=== PATIENT | female | born 1945 ===

== ENCOUNTER 2019-08-18 10:39 | Outpatient (CLI) | payer MEDICARE, OTHER, SELFPAY ==
--- NOTE | ~2019-08-18 | XR_ITS ---
XR hand RT min 3V DATE: 08/18/2019 11:11 INDICATION: Right hand pain TECHNIQUE: 3 views COMPARISON: None FINDINGS: Mild osteoarthritis at the first carpometacarpal joint. There is osteoarthritic change at m ultiple interphalangeal joints. No fracture, dislocation, periosteal reaction or bone destruction. No erosive change or chondrocalcin osis. IMPRESSION: Polyarticular osteoarthritis Reviewed, dictated and finalized at location A.
--- NOTE | ~2019-08-18 | XR_ITS ---
XR finger 3rd RT min 2V DATE: 08/18/2019 11:11 INDICATION: Right hand and third digit pain TECHNIQUE: 3 views of third digit COMPARISON: None FINDINGS: Joint space narrowing and spurring and uncinate the proximal and particularly distal interp halangeal joints, as well as some likely degenerative ossicles, consistent with osteoarthritis. No fracture, dislocation, periosteal reaction or bone destruction. There is soft tissue swelling centered at the proximal interphalangeal joint. IMPRESSION: Soft tissue swelling centered approximately interphalangeal joint Osteoarthritic changes at the proximal and distal interphalangeal joints Reviewed, dictated and finalized at location A.
== END 2019-08-18 10:40 | disposition home or self-care (01) ==
PROVIDERS: PCP Family Medicine; Visit Provider Physician Assistant
DX: M25.449 Effusion, unspecified hand (principal); M79.641 Pain in right hand; M19.041 Primary osteoarthritis, right hand; M79.89 Other specified soft tissue disorders
CPT/HCPCS: 73130; 73140

== ENCOUNTER 2021-04-11 11:29 | Outpatient (CLI) | payer MEDICARE, OTHER, SELFPAY ==
--- NOTE | ~2021-04-11 | CT_ITS ---
EXAMINATION: CT brain wo con EXAM DATE: 04/11/2021 12:05 INDICATION: R55 - Syncope and collapse. Dizziness. TECHNIQUE: Spiral CT of the head was performed without contrast. Axial, coronal and sagittal images were reviewed. The dose-length product (DLP) for this examination was 681.00 mGy-cm. The exposure w as tailored according to patient size, and iterative reconstruction (ASIR) was used as additional dos e reduction technique. Comparison is made to prior examination from 03/17/2018. FINDINGS: There is no acute intraparenchymal hemorrhage. No evidence of intraparenchymal brain mass lesion. No evidence of acute infarction. Please note that initial head CT has limited sensitivity f or small or acute infarctions. There is mild to moderate periventricular and subcortical hypodensity, nonspecific but probably related to small vessel ischemic disease. There is mild prominence of the sulci and ventricles related to cerebral atrophy. There is intracranial carotid arteriosclerosis. There are no extra-axial collections. There is no mass effect or midline shift. Patient has had bi lateral ocular lens surgery. Mild right maxillary sinus mucoperiosteal thickening. IMPRESSION: 1. No acute intracranial findings. 2. Chronic age related findings. Reviewed, dictated and finalized at location A. [employer]
--- NOTE | ~2021-04-11 | US_ITS ---
EXAMINATION: US carotid duplex BI EXAM DATE: 04/11/2021 11:58 INDICATION: R55 - Syncope and collapse . TECHNIQUE: Grayscale, color and pulsed Doppler images of the cervical carotid arteries were obtained . The degree of vessel stenosis is placed in one of the following categories: normal, <50% stenosis, 50-69% stenosis, >=70% stenosis but less than near-occlusion, near-occlusion, or occlusion. Note that percent stenosis relative to normal distal artery lumen diameter is indirectly measured from velocit y measurements as described by Mark, et al. Radiology 2003; 229:340-346. Comparison is made to prior examination from 03/17/2018. FINDINGS: RIGHT SIDE: Right common carotid artery peak systolic velocity (PSV in cm/s): 79 Right bulb/internal carotid artery peak systolic velocity (PSV in cm/s): 45 Right internal carotid artery end diastolic velocity (EDV in cm/s): 15 Right ICA/CCA peak systolic ratio: 0.6 Right external carotid artery peak systolic velocity (PSV in cm/s): 53 Right vertebral artery antegrade flow: yes There is minimal carotid bulb plaque. Velocity and Doppler waveforms in the common and internal carotid arteries is normal. LEFT SIDE: Left common carotid artery peak systolic velocity (PSV in cm/s): 82 Left bulb/internal carotid artery peak systolic velocity (PSV in cm/s): 58 Left internal carotid artery end diastolic velocity (EDV in cm/s): 22 Left ICA/CCA peak systolic ratio: 0.7 Left external carotid artery peak systolic velocity (PSV in cm/s): 78 Left vertebral artery antegrade flow: yes There is no focal plaque identified. IMPRESSION: 1. Less than 50 percent stenosis in the right internal carotid artery. 2. Normal left internal carotid artery. Reviewed, dictated and finalized at location A. MOUNTER
--- NOTE | 2021-04-11 12:08 | ECHO_ITS ---
Patient Info Name: Cyndy Bernal Age: 75 years : 1945 Gender: Female Ht: 63 in Wt: 110 lbs BSA: 1.49 m2 HR: 61 bpm BP: 177 / 109 mmHg Technical Quality: Good Exam Date: 04/11/2021 12:38 PM Exam Location: [facility] Patient Status: Outpatient Admit Date: 04/11/2021 Staff Ordering Physician: Agnieszka Peterson Data Administrator: Jane Perez RDCS Attending Provider: Agnieszka Peterson Referring Physician: Nicholas BUCK; Exam Type: CA echo doppler color flow Study Info Indications R55 - Syncope and collapse Complete two-dimensional, color flow and Doppler transthoracic echocardiogram is performed. Summary 1. Complete two-dimensional, color flow and Doppler transthoracic echocardiogram is performed. 2. Left ventricular chamber dimension is normal. 3. Left ventricular systolic function is normal, estimated at 60-65%. 4. The left ventricular diastolic function is grade I diastolic dysfunction. 5. E/e' 11 is mildly elevated. 6. Global longitudinal strain is abnormal at -15.2%. 7. There is mild aortic valve sclerosis. 8. There is mild mitral valve regurgitation. 9. No pulmonary hypertension, estimated pulmonary arterial systolic pressure is 30 mmHg. Left Ventricle E/e' 11 is mildly elevated. Global longitudinal strain is abnormal at -15.2%. Left ventricular chamber dimension is normal. Left ventricular systolic function is normal, estimated at 60-65%. The left ventricular diastolic function is grade I diastolic dysfunction. Right Ventricle Right ventricular systolic function is normal and with normal TAPSE 1.9 cm. Right ventricular chamber dimension is normal. Left Atria Left atrial chamber dimension is normal. Right Atria Right atrial chamber dimension is normal. Aortic Valve The aortic valve is trileaflet. There is mild aortic valve sclerosis. There is no aortic valve stenosis. There is no aortic valve regurgitation. Pulmonic Valve There is no pulmonic regurgitation. Mitral Valve There is no mitral valve stenosis. There is mild mitral valve regurgitation. Tricuspid Valve There is no tricuspid valve regurgitation. No pulmonary hypertension, estimated pulmonary arterial systolic pressure is 30 mmHg. Pericardium/Pleural There is no pericardial effusion. Inferior Vena Cava Normal inferior vena cava with >50% collapse upon inspiration consistent with normal right atrial pressure, 5 mmHg. Aorta The aortic root size at the sinus of Valsalva is normal. Left Ventricular Outflow Tract Name Value Normal LVOT 2D LVOT Diameter 1.9 cm LVOT Doppler LVOT Peak Gradient 5 mmHg LVOT Mean Gradient 3 mmHg LVOT VTI 23 cm LVOT VTI/AV VTI Ratio 0.9 LVOT Stroke Volume 65 ml LVOT CO 3.9 l/min LVOT CI 2.6 l/min/m2 Pulmonic Valve Name Value
== END 2021-04-11 11:30 | disposition home or self-care (01) ==
LOC: ANHIMG 11:33
PROVIDERS: PCP Family Medicine; Visit Provider Nurse Practitioner Family
DX: R55 Syncope and collapse (principal); E78.00 Pure hypercholesterolemia, unspecified; I10 Essential (primary) hypertension; Z86.73 Personal history of transient ischemic attack (TIA), and cerebral infarction without residual deficits; I35.8 Other nonrheumatic aortic valve disorders; I34.0 Nonrheumatic mitral (valve) insufficiency; I65.21 Occlusion and stenosis of right carotid artery
CPT/HCPCS: 70450; 93306; 93880

== ENCOUNTER 2022-05-01 10:50 | Outpatient (CLI) | payer MEDICARE, OTHER, SELFPAY ==
[2022-05-01 12:35] LABS: Alanine Aminotransferase 27 U/L (6-35); Albumin Level 4.4 g/dL (3.5-5.1); Alkaline Phosphatase 66 U/L (38-126); Anion Gap 4 mmol/L (8-16); Aspartate Amino Transferase 31 U/L (14-36); Bilirubin,Total 0.7 mg/dL (0.2-1.3); Blood Urea Nitrogen 23 mg/dL (7-17); Calcium 8.5 mg/dL (8.4-10.2); Carbon Dioxide 31 mmol/L (22-30); Chloride 104 mmol/L (98-107); Estimated Glomerular Filt Rate > 60; Glucose 91 mg/dL (65-110); Potassium 4.2 mmol/L (3.4-5.0); Sodium 139 mmol/L (137-145)
== END 2022-05-01 10:51 | disposition home or self-care (01) ==
LOC: ANHLAB 10:50
PROVIDERS: PCP Family Medicine; Visit Provider Physician Assistant
DX: Z00.00 Encounter for general adult medical examination without abnormal findings (principal); E78.00 Pure hypercholesterolemia, unspecified; I10 Essential (primary) hypertension
CPT/HCPCS: 36415; 80053

== ENCOUNTER 2023-09-14 06:35 | Emergency (ER) | payer OTHER, SELFPAY ==
[2023-09-14] VITALS (9 sets, daily range): BP systolic 130–153; BP diastolic 84–99; PULSE 47–74; RESP 14–35; TEMP 36.4; O2SAT 95–100
--- NOTE | ~2023-09-14 | CT_ITS ---
Non-contrast CT scan of the Abdomen and Pelvis Clinical indication: Left flank pain Technique: 2.5 mm axial scans were obtained through the abdomen and pelvis without intravenous or or al contrast. Dose reduction technique was used on this scan by utilizing automated exposure control a nd iterative reconstruction technique. The dose-length product (DLP) was 188.51 mGy-cm. Findings: Images through the lung bases reveal no abnormalities. There is no evidence of renal or ureteral calculi. The kidneys and the ureters are nondilated. Left r enal cyst present. The liver, spleen, pancreas, gallbladder, and adrenals appear normal. There is no aortic aneurysm. There is no evidence of bowel obstruction. Normal appendix. Images through the pelvis were performed. There is no evidence of ascites or lymphadenopathy. Urinary bladder unremarkable. No adnexal mass seen. Impression: No significant abnormality seen. Reviewed, dictated and finalized at [facility]. Impression: No significant abnormality seen.
[2023-09-14] MEDS: MORPHINE SULFATE (*CRX) 4 MG/ML INJ IV PUSH (06:50)
[2023-09-14] MEDS: ONDANSETRON INJ 4 MG/2 ML VIAL IV PUSH (06:50)
[2023-09-14 06:54] LABS: Basophils Percent Auto 0.4 % (0.2-1.2); Eosinophils Absolute Auto 0.1 K/mm3 (0-0.3); Eosinophils Percent Auto 1.6 % (0-4.4); Hematocrit 40.8 % (37.0-47.0); Hemoglobin 13.7 g/dL (12.0-15.0); Immature Granulocyte Absolute 0.01 K/mm3 (0.00-0.031); Immature Granulocyte Percent A 0.2 % (0-0.5); Lymphocytes Absolute Auto 2.04 K/mm3 (0.9-3.2); Lymphocytes Percent Auto 36.2 % (18.3-44.2); Mean Corpuscular HGB Conc 33.6 g/dl (32-36); Mean Corpuscular Hemoglobin 30.3 pg (26-34); Mean Corpuscular Volume 90.3 fl (80-100); Mean Platelet Volume 10.9 fl (7.4-10.4); Monocytes Absolute Auto 0.5 K/mm3 (0.1-0.6); Monocytes Percent Auto 8.5 % (2.6-8.5); Neutrophils Percent Auto 53.1 % (45.5-73.1); Platelet Count Result 187 k/mm3 (150-375); Red Blood Count 4.52 M/mm3 (4.2-5.4); Red Cell Distribution Width 13.2 % (11.5-14.5); White Blood Count 5.6 K/mm3 (4.5-10.0)
[2023-09-14 07:00] LABS: Alanine Aminotransferase 15 U/L (6-35); Albumin Level 4.1 g/dL (3.5-5.1); Alkaline Phosphatase 64 U/L (38-126); Anion Gap 8 mmol/L (4-12); Aspartate Amino Transferase 24 U/L (14-36); Bilirubin,Total 0.5 mg/dL (0.2-1.3); Blood Urea Nitrogen 25 mg/dL (7-17); Calcium 8.9 mg/dL (8.4-10.2); Carbon Dioxide 25 mmol/L (22-30); Chloride 105 mmol/L (98-107); Estimated CRCL calculation 42 ml/min; Estimated Glomerular Filt Rate > 60; Glucose 139 mg/dL (65-110); Potassium 3.9 mmol/L (3.4-5.0); Sodium 138 mmol/L (137-145)
[2023-09-14] MEDS: SODIUM CHLORIDE 0.9% IV 2,000 ML 999 ML IV CONT (07:36)
[2023-09-14] MEDS: HYDROmorphone HCL INJ (*CRX) 1 MG/ML SYR 0.5 MG IV PUSH (07:36)
--- NOTE | 2023-09-14 07:43 | ED.GENADULT ---
HPI - General Adult General Chief complaint: Abdominal Pain Stated complaint: flank pain Time Seen by Provider: 09/14/23 06:58 History of Present Illness HPI narrative: this is a 78-year-old female presenting with left-sided flank and abdominal pain. Patient said her symptoms started at 6:00 a.m.. They woke her from sleep. Is an achy pain in the left flank and left lower quadrant. It is severe in intensity and constant. She immediately called her daughter and was brought to the hospital for the EMS. Patient has had nausea and vomiting. Denies fevers or urinary symptoms. Last bowel movement was yesterday. No history of kidney stones. Related Data Allergies Allergy/AdvReac Type Severity Reaction Status Date / Time hydrocortisone Allergy Intermediate itching Verified 09/14/23 06:41 and redness formaldehyde Allergy Unknown itching Verified 09/14/23 06:41 bacitracin Allergy Other Verified 09/14/23 06:41 [From Triple Antibiotic] neomycin Allergy Other Verified 09/14/23 06:41 [From Triple Antibiotic] polymyxin B Allergy Other Verified 09/14/23 06:41 [From Triple Antibiotic] lisinopril AdvReac Unknown not Verified 09/14/23 06:41 effective gludoradorhyde Allergy Intermediate redness Uncoded 09/14/23 06:41 and itching MARIAH Allergy Itching Uncoded 09/14/23 06:41 PMFSH Past Medical History Medical History Cyst Positive colorectal cancer screening using Cologuard test Social History Social History Smoking status: Never smoker Second hand tobacco smoke exposure: No Alcohol intake: current Drinks per week: 3 Substance use: never Substance use type: does not use Living arrangements: alone Occupation/Education: occupation Gender identity (if verbalized by the patient): Female Exam Narrative: APPEARANCE: Patient is rolling back and forth in the bed in pain Head: atraumatic. EYES: EOMI, NOSE: Atraumatic NECK: Trachea midline RESPIRATORY: No increased rate of breathing CARDIOVASCULAR: RRR, ABDOMINAL: tenderness to palpation in the left lower quadrant with voluntary guarding. Left CVA tenderness. MUSCULOSKELETAl: No obvious deformities NEURO: Alert. Moving 4/4 extremities SKIN:: Warm, dry. Normal color PSYCHIATRIC: Normal affect Course Vital Signs Vital signs: Vital Signs Temperature 97.6 F 09/14/23 06:34 Pulse Rate 53 L 09/14/23 06:34 Respiratory Rate 21 H 09/14/23 06:34 Blood Pressure 153/99 H 09/14/23 06:34 Pulse Oximetry 100 09/14/23 06:34 Oxygen Delivery Room Air 09/14/23 06:34 Temperature 97.6 F 09/14/23 06:34 Pulse Rate 53 L 09/14/23 06:34 Respiratory Rate 21 H 09/14/23 06:34 Blood Pressure 153/99 H 09/14/23 06:34 Pulse Oximetry 100 09/14/23 06:34 Oxygen Delivery Room Air 09/14/23 06:34 Medical Decision Making MDM Narrative Medical decision making narrative: -Course: 78-year-old female presenting with left flank abdomen pain. Clinically the patient appears to have a kidney stone. Her CT abdomen pelvis was not clear due to significant calcifications in the patient's pelvis. Case was discussed with the radiologist on-call doctor Dr Malagon and it is possible thatshe has a kidney/bladder stone. Clinically the patient looks like a kidney stone. no evidence of hydronephrosis. Urine not indicative infection. Patient's pain was controlled in the emergency department. She will be treated for suspected kidney stone and given Urology follow-up. Return precautions discussed with the patient and her daughter. -DDX includes but is not limited to: kidney stone, ovarian torsion, colitis, diverticulitis, muscle spasm -Co-morbidities complicating care: hypertension, hypertension, cholesterol -Independent interpretation of studies: Laboratory studies reviewed. Initial lactic 2.6 which improved 1.2 with fluid
--- NOTE | 2023-09-14 07:44 | PC.NURSE ---
pt received Dilaudid as ordered os at decreased to 61% on RA pt placled on 6l NC, small increase to 82% pt placed on NRB, saturation increased to 99%
--- NOTE | 2023-09-14 08:13 | PC.NURSE ---
pt awake, taken off NRB o2 sat 100% RA and RR of 12
[2023-09-14 08:41] LABS: Appearance Urine Clear (Clear); Bacteria Urine None Seen /hpf; Bilirubin Urine Negative (Negative); Blood Urine 2+ (Negative); Color Urine Yellow (Yellow); Glucose Urine UA Negative (Negative); Ketones Urine Negative (Negative); Leukocyte Esterase Ur Negative LEU/UL (Negative); Nitrate Urine Negative (Negative); Non Pathogenic Casts 0-2; Protein Urine Negative (Negative); RBC Urine 21-50 /hpf (0-2); Specific Grav Ur 1.009 (1.001-1.035); Squamous Epithelial Cell Urine None Seen /hpf (Few); Urobilinogen Urine 0.2 mg/dL (<2.0); WBC Urine 0-5 /hpf (0-3)
[2023-09-14 08:46] LABS: Lactic Acid Reflex 2.6 mmol/L (0.7-2.0)
[2023-09-14 08:51] LABS: Add Urine Microscopic? YES
[2023-09-14] MEDS: KETOROLAC 15 MG/ML VIAL (*BKC) IV PUSH (09:27)
[2023-09-14 09:31] LABS: Lactic Acid Reflex 1.2 mmol/L (0.7-2.0)
[2023-09-14 11:36] LABS: Reflex Lactic Acid Yes or No Add Lactic
== END 2023-09-14 10:57 | disposition home or self-care (01) ==
PROVIDERS: Student in an Organized Health Care Education/Training Program; Emergency Provider Emergency Medicine; PCP Family Medicine
DX: N20.0 Calculus of kidney (principal)
CPT/HCPCS: 36415; 74176; 80053; 81001; 83605; 85025; 96361; 96374; 96375; 99284; J1170; J1885; J2270; J2405; J7030